=== PATIENT | female | born 1940 | race Caucasian/White ===

== ENCOUNTER → 2017-01-13 12:21 | Outpatient (CLI) | payer MEDICARE ==
[~2017-01-13 12:21] MED LIST: ALBUTEROL2.5 MG/3 M INH; GABAPENTIN100 MG PO; HYDROCODON-ACE1 EAC7 PO; MUCINEX D1 TAB.SR . PO; NEXIUM40 MG PO; ZOCOR40 MG PO
== END | disposition home or self-care (01) ==
LOC: D.RAD 12:21
DX: R13.19 Other dysphagia (principal)